=== PATIENT | male | born 1940 | race Caucasian/White ===

== ENCOUNTER → 2016-11-11 | Outpatient (CLI) | payer OTHER ==
[~2016-11-11] MED LIST: LEVAQUIN; Norvasc PO; PHENERGAN; Percocet 5/325,Endoc PO; Pravachol PO; Voltaren PO
== END | disposition home or self-care (01) ==
DX: R26.2 Difficulty in walking, not elsewhere classified (principal); M17.11 Unilateral primary osteoarthritis, right knee; M25.561 Pain in right knee; M25.661 Stiffness of right knee, not elsewhere classified; M62.81 Muscle weakness (generalized)
CPT/HCPCS: 97110 GP; 97150 GO; 97161 GP; 97165 GO; G8978 GP; G8979 GP; G8980 GP; G8987 GO; G8988 GO; G8989 GO

== ENCOUNTER → 2016-12-04 | Outpatient (CLI) | payer MEDICARE, OTHER ==
[~2016-12-04] MED LIST changes: +IRON325 M1 PO; +MELATONIN10 M2 PO; +NORVASC5 MG PO; +PROMETHAZINE HC25 M1 PO
== END | disposition home or self-care (01) ==
LOC: CDC 12:03
DX: R00.1 Bradycardia, unspecified (principal)
CPT/HCPCS: 93000

== ENCOUNTER 2016-12-09 05:41 | Inpatient (IN) | payer OTHER ==
[~2016-12-09] VITALS: Ht 165.1 cm; Wt 66.2 kg
[2016-12-09] MEDS ORDERED: BENADRYL50 MG PO (06:28)
[2016-12-09 06:31] VITALS: BP 156/71
[2016-12-09 10:41] LABS: HEMATOCRIT 39.6 % (38.0-50.0); MCH 33.2 PG (29.0-34.0); MCHC 33.3 G/DL (30.0-36.0); MCV 99.5 FL (86-99); MEAN PLAT.VOLUME 9.2 uM^3 (9.0-12.4); RBC DIS.WIDTH-CV 11.9 % (11.8-14.6); RBC DIS.WIDTH-SD 43.9 % (39-53); RED BLOOD COUNT 3.98 M/uL (4.00-5.50)
[2016-12-09 10:47] VITALS: BP 119/60
[2016-12-09 10:54] LABS: PLATELET COUNT 172 K/uL (156-360); WHITE BLOOD COUNT 8.4 K/uL (4.1-10.2)
[2016-12-09 16:00] VITALS: BP 128/92
[2016-12-09 20:00] VITALS: BP 161/72
[2016-12-09 21:20] VITALS: BP 164/86
[2016-12-09 23:55] VITALS: BP 165/84
[2016-12-10 03:46] VITALS: BP 167/87
[2016-12-10 06:45] LABS: HEMATOCRIT 35.6 % (38.0-50.0)
[2016-12-10 07:08] LABS: ANION GAP 7 MEQ/L (2-14); CHLORIDE 102 MEQ/L (99-109); GFR ESTIMATE (CALCULATED) > 59 mL/min/; GLUCOSE 123 mg/dL (70-99); POTASSIUM 4.3 MEQ/L (3.7-5.4); SAMPLE HEMOLYSIS CHECK 0; SAMPLE ICTERIC CHECK 0; SAMPLE LIPEMIA CHECK 0; SODIUM 138 MEQ/L (136-147); UREA NITROGEN (BUN) 18 mg/dL (9-23)
[2016-12-10 08:03] VITALS: BP 146/65
[2016-12-10 11:37] VITALS: BP 137/66
[2016-12-10 16:10] VITALS: BP 152/72
[2016-12-10 20:00] VITALS: BP 151/70
[2016-12-11 00:30] VITALS: BP 128/81
[2016-12-11 04:05] VITALS: BP 148/73
[2016-12-11 05:51] LABS: HEMATOCRIT 35.1 % (38.0-50.0); MCV 99.7 FL (86-99)
[2016-12-11 06:45] LABS: ANION GAP 8 MEQ/L (2-14); CHLORIDE 100 MEQ/L (99-109); GFR ESTIMATE (CALCULATED) > 59 mL/min/; GLUCOSE 117 mg/dL (70-99); POTASSIUM 3.5 MEQ/L (3.7-5.4); SAMPLE HEMOLYSIS CHECK 0; SAMPLE ICTERIC CHECK 0; SAMPLE LIPEMIA CHECK 0; SODIUM 136 MEQ/L (136-147); UREA NITROGEN (BUN) 14 mg/dL (9-23)
[2016-12-11 07:53] VITALS: BP 174/76
[2016-12-11] MEDS ORDERED: DOCUSATE SODIU100 MG PO (08:20)
[2016-12-11] MEDS ORDERED: ENDOCET 5-3251 EACH PO (08:20)
[2016-12-11 12:15] VITALS: BP 132/69
[2016-12-11 13:01] LABS: ADD MIUA? YES; BILIRUBIN NEGATIVE; BLOOD SMALL; COLOR YELLOW ((YELLOW)); GLUCOSE (STRIP) NEGATIVE; KETONES 5; LEUKOCYTES NEGATIVE; NITRITE NEGATIVE; PROTEIN (STRIP) NEGATIVE; SPECIFIC GRAVITY 1.008 (1.000-1.030); UROBILINOGEN 0.2 MG/DL (0.2-1.0)
[2016-12-11 13:26] LABS: BACTERIA NONE SEEN /HPF; EPITHELIAL CELLS RARE /HPF; MUCUS TRACE /LPF; RED BLOOD CELLS 0-5 /HPF (0-5); WHITE BLOOD CELLS 0-5 /HPF (0-5)
== END 2016-12-11 16:29 | DRG 470 ==
LOC: 2SOUTH → 3WEST 10:31 → 2SOUTH 10:58 → 3WEST 12-11 16:29
PROVIDERS: Orthopaedic Surgery; Physician Assistant
PROC: 0SRC0J9 Replacement of Right Knee Joint with Synthetic Substitute, Cemented, Open Approach (ICD-10-PCS; principal; 2016-12-09)
DX: M17.11 Unilateral primary osteoarthritis, right knee (principal); M21.161 Varus deformity, not elsewhere classified, right knee; M25.561 Pain in right knee; K21.9 Gastro-esophageal reflux disease without esophagitis; I10 Essential (primary) hypertension; E78.00 Pure hypercholesterolemia, unspecified; Z87.442 Personal history of urinary calculi
CPT/HCPCS: 73560; 80048; 81003; 85014; 85018; 85027; 97530 GP; C1713; J0690; J1100; J1170; J1650; J2250; J2405; J7050